=== PATIENT | female | born 1975 | race Caucasian/White ===

== ENCOUNTER 2018-06-14 21:38 | Emergency (ER) | payer OTHER ==
--- OUTSIDE RECORDS SUMMARY | 2018-06-14 21:45 | XMS REPORT | Continuity of Care Document ---
:1975 External Reference #:[id number] Author Name Katt Hernandez CNM Address [address] [place] [address] Care Team Providers Name Role Phone Katt Hernandez CNM Care Team Information Assistant Production Manager Unavailable Payers Date Identification Numbers Payment Provider Subscriber Effective: 2013 Policy Number: [id number] [facility] PayID: [id number] [address] [place] [address] Effective: 2012 Policy Number: [id number] Medicaid [place] PayID: [id number] [address] [place] [address] Expires: 2012 Policy Number: Excell[employer] SUSAN/WENDY Sher [id number] [facility] Group Number: [id number] [address] [address] PayID: [id number] MUKESH Naranjo [id number] Advance Directives Description No Information Available Problems Date Description Provider Status Onset: 12/25/2015 IUD contraception Katt Hernandez CNM Active Onset: 09/11/2015 Multigravida Katt Hernandez CNM Resolved Resolved: 10/17/2015 Family History Date Family Member(s) Observation Comments Father due to Emphysema () Mother A&W Children 3 First Son A&W Second Son A&W Third Son A&W First Brother A&W Second Brother A&W First Sister A&W Second Sister A&W Third Sister A&W Fourth Sister A&W Paternal Grandfather due to Old Age () Paternal Grandmother due to Old Age () Maternal Grandfather due to Unknown Causes () Maternal Grandmother due to Old Age () Social History Type Date Description Comments Sex Unknown Education Highest level completed, Associates Degree Marital Status Lives With Spouse Lives With Sons Pets 2 cats Pets 1 dog Pets Chickens 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 Tobacco Use Start: Unknown Never Smoked Cigarettes ETOH Use Occasionally consumed stopped with alcohol in the past Recreational Drug Use Does Not Use Drugs Tobacco Use Start: Unknown Patient has never smoked Smoking Status Reviewed: 05/20/18 Patient has never smoked Exercise Type/Frequency Exercises sporadically Seat Belt/Car Seat Always uses seat belt Currently Active Patient is currently sexually active Contraceptive Methods Current methods include copper T IUD STD's No STD History Allergies, Adverse Reactions, Alerts Description No Known Drug Allergies Medications Medication Date Status Form Strength Qnty SIG Indications Ordering Provider Paragard 12/24 Active IUD T380a placed Mahrie Intrauterine 04/05/2018 Jose Hernandez [facility] Contraceptive T380a Vitamin D-3 Active Capsules 1000Unit 2 by mouth Unknown /0000 daily Calcium 600 Active Tablets 600mg Unknown /0000 Magnesium Active Capsules 500mg Unknown /0000 Zinc Active Tablets 25mg Unknown /0000 Metronidazole 04/07 Hx Gel 0.75% 70gm one applicator intravaginally David, - every night at [facility] 04/14 bedtime x days Diclegis 03/23 Hx Tablets 10-10mg 60tab take [address] diaz by mouth at [facility], - bedtime, june [facility] 07/02 add 1 tablet in morning No Active 06/08 Hx Unknown Medications /2014 - 03/23 Norberto-Tab 12/20 Hx Tablets 250mg Gloria DR Valles, - ANP-[facility] 12/20 Erythromycin 12/[address] 250mg 56cap 1 po qid x 14 Gloria Part s Reena, - ANP-C 01/12 Doxycycline 12/[address] 100mg 28cap one tab po bid Gloria Hyclate Part s x 14 days to Jump, - start day 1 of ANP-C 12/20 mens Doxycycline 12/[address] 100mg 28cap one tab po bid Gloria Hyclate Part s x 14 days to Jump, - start day 1 of ANP-C 12/08 mens Folic Acid 05/18 Hx Tablets Mid Dwayne Adam M.D. 05/09 Ferrous 05/18 Hx Syrup 150cc 1 tsp by mouth Meera, daily Dwayne Adam M.D. 11/29 05/18 Hx Tablets 90tab 1 po qd Meera s Dwayne Adam M.D. 06/08 Vitamin D / Hx Unknown /0000 - 05/09 Iron 100 Plus Hx Unknown / - 05/09 Calcium & Hx Unknown Magnesium /0000 - 05/09 Lexapro Hx Tablets 5mg 1 PO daily Unknown / - 11/07 Medications Administered in Office Medication Date Status Form Strength Qnty SIG Indications Ordering Provider PT SCRN Tbco Administered Injection Mahriben Id as Non User 019 SUDHAKAR Hernandez PT SCRN Tbco Administered Injection Katt Id as Non User 019 SUDHAKAR Hernandez Immunizations CPT Code Status Date Vaccine Lot # [id number] Given 07/24/2015 Tetnus, Diptheria Toxoids And Acellular Pertussis, [id number] PT > 7Yrs Old 60949 Given 06/09/2013 Tetnus, Diptheria Toxoids And Acellular Pertussis, [id number] PT > 7Yrs Old 16095 Given 02/21/2013 Influenza Virus Vaccine Split Virus Use For Individual 3Yr Older Vital Signs Date Vital Result Comment 05/20/2018 9:16am BP Systolic 108 mmHg BP Diastolic 68 mmHg Height 66 inches 5'6" Weight 152.00 lb BMI (Body Mass Index) 24.5 kg/m2 6 Parity 3 04/05/2018 2:13pm BP Systolic 106 mmHg BP Diastolic 64 mmHg Height 66 inches 5'6" Weight 152.00 lb BMI (Body Mass Index) 24.5 kg/m2 Last Menstrual Period 1904438 6 Parity 3 11/07/2016 11:01am BP Systolic 122 mmHg BP Diastolic 82 mmHg Height 66 inches 5'6" Weight 151.00 lb BMI (Body Mass Index) 24.4 kg/m2 Last Menstrual Period 9371215 6 Parity 3 01/23/2016 12:11pm BP Systolic 98 mmHg BP Diastolic 58 mmHg Height 66 inches 5'6" Weight 144.00 lb BMI (Body Mass Index) 23.2 kg/m2 12/25/2015 1:26pm BP Systolic 108 mmHg BP Diastolic 64 mmHg Height 66 inches 5'6" Weight 144.00 lb BMI (Body Mass Index) 23.2 kg/m2 Last Menstrual Period 9186467 6 Parity 3 11/28/2015 1:43pm BP Systolic 118 mmHg BP Diastolic 64 mmHg Height 66 inches 5'6" Weight 144.00 lb BMI (Body Mass Index) 23.2 kg/m2 Last Menstrual Period 1403817 6 Parity 3 03/23/2015 1:09pm BP Systolic 108 mmHg BP Diastolic 64 mmHg Height 66 inches 5'6" Weight 140.00 lb BMI (Body Mass Index) 22.6 kg/m2 Last Menstrual Period 7050193 6 Parity 2 06/08/2014 1:59pm BP Systolic 122 mmHg BP Diastolic 86 mmHg Height 66 inches 5'6" Weight 137.00 lb BMI (Body Mass Index) 22.1 kg/m2 Last Menstrual Period 0544693 5 Parity 2 10/13/2013 10:56am BP Systolic 126 mmHg BP Diastolic 78 mmHg Height 66 inches 5'6" Weight 150.00 lb BMI (Body Mass Index) 24.2 kg/m2 Last Menstrual Period 3789049 4 Parity 2 01/17/2013 1:48pm BP Systolic 108 mmHg BP Diastolic 64 mmHg Height 66 inches 5'6" Weight 138.00 lb BMI (Body Mass Index) 22.3 kg/m2 Last Menstrual Period 0715414 4 Parity 1 11/29/2012 10:34am BP Systolic 122 mmHg BP Diastolic 80 mmHg Height 66 inches 5'6" Weight 135.00 lb BMI (Body Mass Index) 21.8 kg/m2 Last Menstrual Period 5805463 3 Parity 1 06/10/2012 8:19am BP Systolic 110 mmHg BP Diastolic 64 mmHg Height 66 inches 5'6" Weight 136.00 lb BMI (Body Mass Index) 21.9 kg/m2 Last Menstrual Period 3436449 2 Parity 1 05/18/2012 10:14am BP Systolic 110 mmHg BP Diastolic 64 mmHg Height 66 inches 5'6" Weight 137.00 lb BMI (Body Mass Index) 22.1 kg/m2 Last Menstrual Period 0515136 2 Parity 1 Results Test Date Facility Test Result H/L Range Note Laboratory test 04/05/2018 [facility] Cytology SEE RESULT 1 finding [place] [address] BELOW [phone] CBC With No Diff 11/07/2016 [facility] White Blood 7.9 10^3/uL N 3.5-10.8 [place] [address] Count [phone] Red Blood Count 4.49 10^6/uL N 4.0-5.4 Hemoglobin 14.0 g/dL N 12.0-16.0 Hematocrit 42 % N 35-47 Mean Corpuscular Volume 94 fL N 80-97 Mean Corpuscular Hemoglobin 31 pg N 27-31 Mean Corpuscular HGB Conc 33 g/dL N 31-36 Red Cell Distribution Width 13 % N 10.5-15 Platelet Count 276 10^3/uL N 150-450 Mean Platelet Volume 8 um3 N 7.4-10.4 Laboratory test 11/07/2016 [facility] TSH 0.76 mcIU/mL N 0.34- 5.60 2 finding [facility] [place] [address] [phone] T4 Free 0.71 ng/dL N 0.61-1.12 3 Liver Function 10/09/2015 [facility] Total Protein 5.8 g/dL Low 6.4-8.9 Panel Medicine [place] [address] [phone] Albumin 3.3 g/dL N 3.2-5.2 Globulin 2.5 g/dL N 2-4 Albumin/Globulin Ratio 1.3 N 1-3 Total Bilirubin 0.40 mg/dL N 0.2-1.0 Direct Bilirubin 0.10 mg/dL N 0.03-0.18 Indirect Bilirubin 0.3 mg/dL N 0.3-1.0 Alkaline Phosphatase 91 U/L N 34-104 Alt 14 U/L N 7-52 Ast 18 U/L N 13-39 Laboratory test 10/09/2015 [facility] Bile Acid 1 umol/L N 0- 10 4 finding [place] [address] [phone] Laboratory test 09/25/2015 [facility] Genital For SEE RESULT 5 finding [place] [address] GRP B Strep BELOW [phone] Only Laboratory test 07/24/2015 [facility] Glucose 1 HR 85 mg/dL N 70-160 6 [place] [address] Post Prandial [phone] CBC With No Diff 07/24/2015 [facility] White Blood 6.8 10^3/uL N 3.5-10.8 [place] [address] Count [phone] Red Blood Count 3.84 10^6/uL Low 4.0-5.4 Hemoglobin 12.0 g/dL N 12.0-16.0 Hematocrit 37 % N 35-47 Mean Corpuscular Volume 97 fL N 80-97 Mean Corpuscular Hemoglobin 31 pg N 27-31 Mean Corpuscular HGB Conc 32 g/dL N 31-36 Red Cell Distribution Width 12 % N 10.5-15 Platelet Count 221 10^3/uL N 150-450 Mean Platelet Volume 8 um3 N 7.4-10.4 Maternal Serum Afp 05/15/2015 [facility] ROHAN Interpretation SEE NOTE 7 Risk For NTD (Osb) LESS THAN 1:5000 8 Afp,Serum 29.5 NG/ML Adjusted Mom 0.69 9 Comment SEE NOTE 10 Date Of 1975 JUVENTINO 10/18/2015 JUVENTINO Determined By ULTRASOUND Gestational Age 17.7 WEEKS Weight 140 LBS Race =W Insulin Dependent Diabetic NO Repeat Sample NO Number Of Fetuses 1 History Of NTD NO Date Of Draw 05/15/2015 Software Engineer Kernel SEE NOTE 11 CBC With No 03/30/2015 [facility] White Blood 8.1 10^3/uL N 3.5-10.8 [place] [address] Count [phone] Red Blood Count 4.12 10^6/uL N 4.0-5.4 Hemoglobin 13.0 g/dL N 12.0-16.0 Hematocrit 39 % N 35-47 Mean Corpuscular Volume 94 fL N 80-97 Mean Corpuscular Hemoglobin 32 pg High 27-31 Mean Corpuscular HGB Conc 34 g/dL N 31-36 Red Cell Distribution Width 12 % N 10.5-15 Platelet Count 224 10^3/uL N 150-450 Mean Platelet Volume 9 um3 N 7.4-10.4 Type And Screen 03/30/2015 [facility] Patient Blood [place] [address] [phone] Antibody Screen NEGATIVE N HIV 1/2 AB 03/30/2015 [facility] HIV 1 2 Nonreactive N Nonreactive 12 [place] [address] Antibody [phone] Parvovirus 03/30/2015 [facility] Parvovirus 6.28 index Abnormal <0.90 [address] [place] [place] [address] (B19) IgG Igm [phone] Antibody Parvovirus (B19) IgM Antibody 0.09 index N <0.90 14 Parvovirus Interpretation See Comment N 15 SCR+Sex 03/30/2015 [facility] Chromosome 13 Negative N 16 Chrom Analysis Inform Aneuploidy Chromosome 18 Aneuploidy Negative N 17 Chromosome 21 Aneuploidy Negative N 18 Sex Chromosome Analysis Male N 19 PDF Report SEE IMAGE RPR 03/30/2015 [facility] Syphilis IgG [place] [address] [phone] Pediatric/Maternal YES N RPR Nonreactive N Nonreactive RPR Titer TNP N PNL No 03/30/2015 [facility] Rubella Screen Immune IU/ [place] [address] [phone] Hemoglobin A1c 5.1 % N Less than 6.0 20 Hepatitis B Surface Ag Nonreactive N Nonreactive 21 GC/Chlamydia Dna 03/23/2015 [facility] Chlamydia Negative [place] [address] trachomatis Rna [phone] Neisseria gonorrhoeae (GC) Rna Negative N Negative Laboratory test 03/23/2015 [facility] Human Negative N Negative 22 [place] [address] Papilloma [phone] Virus Rna Urine Culture And 03/23/2015 [facility] Urine Culture SEE RESULT 23 [place] [address] BELOW [phone] Laboratory test 03/23/2015 [facility] Cytology SEE RESULT 24 [place] [address] BELOW [phone] Laboratory test 07/29/2013 [facility] Group B Strep (SEE NOTE) 25 [place] [address] Culture [phone] Screen Laboratory test 06/09/2013 [facility] Glucose 1 HR 111 mg/dL N 70-160 [place] [address] Post Prandial [phone] CBC With No Diff 06/09/2013 [facility] White Blood 9.0 10^3/uL N 4.8-10.8 [place] [address] Count [phone] Red Blood Count 3.70 10^6/uL Low 4.0-5.4 Hemoglobin 11.9 g/dL Low 12.0-16.0 Hematocrit 34 % Low 35-47 Mean Corpuscular Volume 92 fL N 80-97 Mean Corpuscular Hemoglobin 32 pg High 27-31 Mean Corpuscular HGB Conc 35 g/dL N 31-36 Red Cell Distribution Width 12 % N 10.5-15 Platelet Count 235 10^3/uL N 150-450 Mean Platelet Volume 8 um3 N 7.4-10.4 Maternal Serum Afp 03/21/2013 [facility] Interpretation (SEE NOTE) 26 Risk For NTD (Osb) LESS THAN 1:5000 27 Afp,Serum 39.1 NG/ML Adjusted Mom 0.86 28 Comment (SEE NOTE) 29 Date Of 1975 JUVENTINO 08/25/2013 JUVENTINO Determined By ULTRASOUND Gestational Age 17.6 WEEKS Weight 138 LBS Race =W Insulin Dependent Diabetic NO Repeat Sample NO Number Of Fetuses 1 History Of NTD NO Date Of Draw 03/21/2013 Software Engineer Kernel (SEE NOTE) 30 PNL No 02/21/2013 [facility] Rubella Screen [place] [address] [phone] Hemoglobin A1c 4.9 % Less than 6.0 31 Hepatitis B Surface Antigen Nonreactive Nonreactive 32 RPR 02/21/2013 [facility] Syphilis IgG [place] [address] [phone] RPR Nonreactive Nonreactive RPR Titer TNP Pediatric/Maternal YES CBC With No 02/21/2013 [facility] White Blood 5.4 10^3/uL 4.8 -10.8 [place] [address] Count [phone] Red Blood Count 3.96 10^6/uL Low 4.0-5.4 Hemoglobin 12.7 g/dL 12.0-16.0 Hematocrit 37 % 35-47 Mean Corpuscular Volume 93 fL 80-97 Mean Corpuscular Hemoglobin 32 pg High 27-31 Mean Corpuscular HGB Conc 35 g/dL 31-36 Red Cell Distribution Width 12 % 10.5-15 Platelet Count 203 10^3/uL 150-450 Mean Platelet Volume 9 um3 7.4-10.4 Type And Screen 02/21/2013 [facility] Patient [place] [address] [phone] Antibody Screen NEGATIVE HIV 1/2 AB 02/21/2013 [facility] HIV 1 2 Antibody Nonreactive Nonreactive 33 [place] [address] [phone] Laboratory 02/21/2013 [facility] TSH (Thyroid 1.03 miu/mL 0.34-5.60 [place] [address] Stimulating [phone] Horm) Sequential 02/21/2013 [facility] Interpretation SEE BELOW 34 Integrated SCRN 1 [place] Age Risk Down Syndrome 1:130 ROHAN Down Syndrome Risk <1:5000 <1:50 ROHAN Trisomy 18 Risk 1:39 <1:100 Calculated Gestational Age 13.3 35 Sigifredo-A 482 NG/ML Sigifredo-A Mom 0.35 HCG,Serum 16.5 IU/mL HCG Mom 0.31 NT Mom 1.23 36 Referring Physician Name NASRA PARSONS Referring Physician Phone [phone] Referring Physician Npi [id number] Date Of 1975 Collection Date 02/21/2013 Maternal Weight 138 LBS Est'd Date Of Delivery 08/25/2013 JUVENTINO Determined By Mother's Ethnic Origin Number Of Fetuses 1 Insulin Depend Diabetic NO Repeat Specimen NO HX Of Neural Tube Defects NO Brief History (NTD) NO Prev Down Synd NO Donor Egg NO Donor Age:Egg Retrieval NO Ultrasound Date 02/21/2013 Pumper Hand's Name GILLES NTQR Pumper Hand Id# [id number] NTQR Location Id# [id number] NTQR Reading Phys Id# [id number] F Pumper Hand Id# NOT GIVEN [place] Rump Length 74 MM Nuchal Translucency 2.0 MM Nasal Bone NOT GIVEN If Twins NOT GIVEN Twin B CRL NOT GIVEN MM Twin B NT NOT GIVEN MM Twin B Nasal Bone NOT GIVEN Culture,Urine,Voided 01/17/2013 [facility] Source URINE-CLEAN VOID <SEE NOTE> 37 Final Report (SEE NOTE) 38 Laboratory test finding 12/24/2012 [facility] Progesterone 16.5 NG/ML 39 HCG,Total,QN 2671.1 MIU/ML Abnormal 40 GC/Chlamydia 11/29/2012 [facility] GC/Chlamydia (SEE neg 41 [place] [address] Rna NOTE) [phone] Laboratory 11/29/2012 [facility] Mycoplasma see Abnormal + 42 test finding Hominis/Ureapl note ureaplasma asma Culture Lupus Anticoag 11/29/2012 [facility] Antithrombin 121 High 80-120 43 W/RFX,Atiii,Pr III Activity %activi otein C&S ty Lupus Anticoagulant see note 44 PTT-LA Screen 35 sec <=40 DRVVT Mix Interpretation Not Indicated DRVVT Screen 31 sec <=45 Protein C,Activity 162 % 70-180 45 Protein S,Activity 91 % 60-140 Cardiolipin AB Igg,Iga,Igm 11/29/2012 [facility] Cardiolipin AB (Iga) <11 APL <=11 46 Cardiolipin AB (Igg) <14 GPL <=14 47 Cardiolipin AB (Igm) <12 MPL <=12 48 Prothrombin Gene,MTHFR 11/29/2012 [facility] Prothrombin Gene Analysis see note 49 Dna,Factor V Interpretation see note 50 Reviewer see note 51 MTHFR,Dna Mutation see note Abnormal 52 Interpretation see note 53 Reviewer see note 54 Factor V (Leiden) Mutation see note 55 Interpretation see note 56 Reviewer see note 57 Laboratory 05/20/2012 [facility] Beta HCG 152.0 High 0.0-5.0 58 [place] [address] Quantitative MIU/ML [phone] Laboratory 05/18/2012 [facility] Beta HCG 442.0 High 0.0-5.0 59 [place] [address] Quantitative MIU/ML [phone] Hepatitis 06/13/2003 [facility] Hepatitis A AB NEGATIVE [place] [address] Igm [phone] Hepatitis B Surface Ag NEGATIVE Negative Hepatitis B Core Igm NEGATIVE Negative Hepatitis C Antibody NEGATIVE Negative Laboratory test 03/16/2002 [facility] TSH 0.67 MIU/ML 0.34- 5.60 [place] [address] [phone] Free Thyroxine 0.69 ng/dL 0.58-1.64 GC/Chlamydia Dna 07/29/2001 [facility] Chlamydia By NEGATIVE Negative 60 [place] [address] Dna Probe [phone] GC By Dna Probe NEGATIVE Negative 61 1 SEE RESULT BELOW Name: KRYS RAMOS : [address]: Katt LUCIO Acct: [id number] Unit: [id number] AGE: 42 Location: [facility] Re04/05/18 SEX: F Status: REG REF SPEC: [id number] ELEN: 04/05/18-[address]: Katt LUCIO REQ: [id number] RECD: 04/06/18-1311 STATUS: SOUT _ ORDERED: TP IMAGE ANALYS, HPV/Thin Prep COMMENTS: [id number] Negative for Intraepithelial lesion or Malignancy Shift in jose suggestive of bacterial vaginosis Date Time Test Result Flag (u) Normal Range 04/05/18 0830 @ HPV RNA Negative Negative @ @ The high-risk HPV types detected by the assay include: 16, @ 18, 31, 33, 35, 39, 45, 51, 52, 56, 58, 59, 66, and 68. A. Ectocervical/Endocervical Specimen Adequacy: Satisfactory of evaluation Transformation zone component identified Patient Information: HPV: High risk HPV RNA testing regardless of pap results. Actual Specimen Date: 04/05/18 Last Menstrual Date: 03/08/18 Date of Last Specimen: 03/23/15 ?: N Post Menopausal?: N Hysterectomy?: N Previous Abnormal Pap Smears?:N Signed by and Reported on: JAROD Eli(ASCP) [id number] This Pap test was evaluated with the assistance of the SimplifyPrep Test Imaging System. Due to cytologic findings at the clay mine cutting machine operator microscope, comprehensive manual rescreening by a Petroleum Geologist may be required. The Pap Smear is a screening test designed to aid in the detection of premalignant and malignant conditions of the uterine cervix. It is not a diagnostic procedure and should not be used as the sole means of detecting cervical cancer. Both false- positive and false- negative reports do occur. Depending on your risk status, a Pap smear should be obtained and evaluated every 1-3 years. END OF REPORT DEPARTMENT OF PATHOLOGY, [address] [place] [address] Brian Deras M.D. Director [facility] # [id number] 2 [id number] INTERPRETIVE INFORMATION: Bile Acids, Total Reference Interval applies to fasting specimens. Test Performed by: [facility] [employer] [facility] [address] [place] [id number] 5 SEE RESULT BELOW Name: KRYS RAMOS : [address]: Katt Hernandez [facility] Acct: [id number] Unit: [id number] AGE: 40 Location: [facility] Re09/25/15 SEX: F Status: REG REF SPEC: [id number] ELEN: 09/25/15-[address]: Katt Hernandez [facility] REQ: [id number] RECD: 09/25/15 STATUS: COMP _ SOURCE: CER/VAG/RE SPDESC: ORDERED: Grp B Strp Scrn COMMENTS[place] [facility] [id number] QUERIES: Is Patient Penicillin Allergic? N Is patient penicillin allergic and/or sensitivities needed? N Provider Requisition # [id number] Procedure Result Reported Site Group B Strep Culture Screen Final 09/27/15- 1438 ML Group B Strep Screen Negative * ML - MAIN LAB ([facility]) . END OF REPORT * ML=Testing performed at Main Lab DEPARTMENT OF PATHOLOGY, [address] [place] [address] Brian Deras M.D. Director [facility] # [id number] 6 [id number] SCREEN NEGATIVE FOR OPEN NTD. 8 LESS THAN 1:5000 9 ADJUSTED AFP MOM INTERPRETIVE CUTOFFS: <2.50 ADJUSTED MOM <1.90 ADJUSTED MOM FOR INSULIN-DEPENDENT DIABETES <4.00 ADJUSTED MOM FOR TWINS <3.50 ADJUSTED MOM FOR TWINS INSULIN-DEPENDENT DIABETES <4.50 ADJUSTED MOM FOR TRIPLETS <4.00 ADJUSTED MOM FOR TRIPLETS INSULIN-DEPENDENT DIABETES 10 THE AFP TEST RESULT INDICATES THAT THIS PATIENT IS SCREEN NEGATIVE FOR OPEN NTD. IT SHOULD BE NOTED THAT NORMAL TEST RESULTS CAN NEVER GUARANTEE THE OF A NORMAL BABY AND THAT 2-3% OF [place] HAVE SOME TYPE OF PHYSICAL OR MENTAL DEFECT, MANY OF WHICH ARE UNDETECTABLE THROUGH ANY KNOWN DIAGNOSTIC TECHNIQUE. THE SINGLE AFP MARKER IS NOT RECOMMENDED FOR DOWN SYNDROME AND OTHER CHROMOSOMAL ABNORMALITIES SCREENING. MUCH GREATER SENSITIVITY IS ACHIEVED WITH MULTIPLE MARKERS, SUCH AFP, HCG, UNCONJUGATED ESTRIOL, AND/OR DIMERIC INHIBIN A. WHILE WOMEN 35 YEARS OR OLDER AT THE TIME OF DELIVERY HAVE THE HIGHEST RISK OF HAVING A CHILD WITH DOWN SYNDROME, CURRENT [place] [employer] AND GYNEC[employer] GUIDELINES (RECREATIONAL VEHICLE REPAIRER 2007 [id number] RECOMMEND THAT "MATERNAL AGE ALONE NO LONGER BE USED A CUT-OFF TO DETERMINE WHO IS OFFERED SCREENING VERSUS WHO IS OFFERED INVASIVE TESTING." GENETIC COUNCELING MAY BE CONSIDERED. THIS IS A SCREENING TEST, NOT A DIAGNOSTIC TEST. THIS RISK ASSESSMENT REPORT IS BASED IN PART ON DEMOGRAPHIC DATA PROVIDED BY THE ORDERING PHYSICIAN. PLEASE NOTIFY THE LAB PROMPTLY IF ANY DATA IS INCORRECT. FOR ASSISTANCE WITH RECALCULATIONS, PLEASE CALL YOUR LOCAL [facility] AT . FOR ASSISTANCE WITH INTERPRETATION OF THESE RESULTS, PLEASE CALL [phone]. 11 REVIEWED BY Jasmine RYAN M.D. 12 It is recognized that currently available assays for the detection of antibodies to HIV-1 and/or HIV-2 may not detect all infected individuals. HIV antibodies may be undetectable in some stages of the infection and in some clinical conditions. The performance of this assay has not been established for populations of infants or children. Assayed by Chemiluminescence Microparticle Immunoassay on the Siemens Advia Centaur CP. Values obtained with different methods or kits cannot be used interchangeably.The diagnostic specificity of the ADVIA Centaur 1/O/2 Enhanced assay in the low risk population was 99.90% (6052/6058) with a 95% confidence interval of 99.78 to 99.96%. 13 Positive 14 Negative 15 RESULT: Results suggest past infection. Test Performed by: [place] [address] Software Engineer Kernel: Sharad Fink II, M.D., Ph.D. 16 No aneuploidy detected. 17 No aneuploidy detected. 18 No aneuploidy detected. 19 Male: No aneuploidy detected. 20 Therapeutic target for the treatment of diabetes Mellitus patients is <7% HBA1C, and in selective patients <6.0%.Please refer to [place] [employer] Diabetic care guidelines for further information. 21 , Pediatric (<=12yrs) or Maternal?: YES 22 The high-risk HPV types detected by the assay include: 16, 18, 31, 33, 35, 39, 45, 51, 52, 56, 58, 59, 66, and 68. 23 SEE RESULT BELOW Name: KRYS RAMOS : [address]: Anna LUCIO Acct: [id number] Unit: [id number] AGE: 39 Location: [facility] Re03/23/15 SEX: F Status: REG REF SPEC: [id number] ELEN: 03/23/15-1340 [facility] DR: Anna Rouse [facility] REQ: [id number] RECD: 03/23/15 STATUS: COMP _ SOURCE: URINE SPDESC: ORDERED: Urine Culture Procedure Result Reported Site Urine Culture Final 03/25/15- 0846 ML No Growth (<1,000 CFU/mL) * ML - MAIN LAB ([facility]) . END OF REPORT * ML=Testing performed at Main Lab DEPARTMENT OF PATHOLOGY, [address] [place] [address] Brian Deras M.D. Director [facility] # [id number] 24 SEE RESULT BELOW Name: KRYS RAMOS : [address]: Anna Rouse CNM Acct: [id number] Unit: [id number] AGE: 39 Location: [facility] Re03/23/15 SEX: F Status: REG REF SPEC: [id number] ELEN: 03/23/15-[address]: Anna Rouse CNM REQ: [id number] RECD: 03/23/15 STATUS: SOUT _ ORDERED: IMAGE ANALYSIS, HPV/Thin Prep FINAL DIAGNOSIS Negative for Intraepithelial lesion or Malignancy A. Ectocervical/Endocervical Specimen Adequacy: Satisfactory of evaluation Transformation zone component identified Patient Information: HPV: High risk HPV RNA testing regardless of pap results. Actual Specimen Date: 03/23/15 Last Menstrual Date: 01/11/15 Spec Date if unknown: unknown ?: Y Date Time Test Result Flag (u) Normal Range 03/23/15 1415 HPV RNA Negative Negative The high-risk HPV types detected by the assay include: 16, 18, 31, 33, 35, 39, 45, 51, 52, 56, 58, 59, 66, and 68. Signed (signature on file) JAROD Eli([facility]) 03/26 1528 This Pap test was evaluated with the assistance of the ClickScanSharep Test Imaging System. Due to cytologic findings at the clay mine cutting machine operator microscope, comprehensive manual rescreening by a Petroleum Geologist may be required. The Pap Smear is a screening test designed to aid in the detection of premalignant and malignant conditions of the uterine cervix. It is not a diagnostic procedure and should not be used as the sole means of detecting cervical cancer. Both false- positive and false- negative reports do occur. Depending on your risk status, a Pap smear should be obtained and evaluated every 1-3 years. END OF REPORT * ML=Testing performed at Main Lab DEPARTMENT OF PATHOLOGY, [facility] [employer] [place], [place] [address] Brian Deras M.D. Director [facility] # [id number] 25 RUN DATE: 08/03/13 [facility] LAB LIVE PAGE 1 RUN TIME: [address] [facility] [employer] [place], [place] [address] Specimen Inquiry Name: KRYS RAMOS : [address]: Toña Gage CNM Acct: [id number] Unit: [id number] AGE: 38 Location: [facility] Re07/29/13 SEX: F Status: REG REF SPEC: [id number] ELEN: 07/29/13-[address]: Toña Gage CNM REQ: [id number] RECD: 08/01/13-1628 STATUS: COMP _ SOURCE: CER/VAG/RE SPDESC: ORDERED: Grp B Strp Scrn QUERIES: Is Patient Penicillin Allergic? N Medent Number [id number] Procedure Result Verified Site Group B Strep Culture Screen Final 08/03/13- 0850 ML Group B Strep Screen Negative END OF REPORT * ML=Testing performed at Main Lab DEPARTMENT OF PATHOLOGY, [address] [place] [address] Brian Deras M.D. Director [facility] # [id number] 26 SCREEN NEGATIVE FOR OPEN NTD. 27 LESS THAN 1:5000 28 ADJUSTED AFP MOM INTERPRETIVE CUTOFFS: <2.50 ADJUSTED MOM <1.90 ADJUSTED MOM FOR INSULIN-DEPENDENT DIABETES <4.00 ADJUSTED MOM FOR TWINS <3.50 ADJUSTED MOM FOR TWINS INSULIN-DEPENDENT DIABETES <4.50 ADJUSTED MOM FOR TRIPLETS <4.00 ADJUSTED MOM FOR TRIPLETS INSULIN-DEPENDENT DIABETES 29 THE AFP TEST RESULT INDICATES THAT THIS PATIENT IS SCREEN NEGATIVE FOR OPEN NTD. IT SHOULD BE NOTED THAT NORMAL TEST RESULTS CAN NEVER GUARANTEE THE OF A NORMAL BABY AND THAT 2-3% OF [place] HAVE SOME TYPE OF PHYSICAL OR MENTAL DEFECT, MANY OF WHICH ARE UNDETECTABLE THROUGH ANY KNOWN DIAGNOSTIC TECHNIQUE. THE SINGLE AFP MARKER IS NOT RECOMMENDED FOR DOWN SYNDROME AND OTHER CHROMOSOMAL ABNORMALITIES SCREENING. MUCH GREATER SENSITIVITY IS ACHIEVED WITH MULTIPLE MARKERS, SUCH AFP, HCG, UNCONJUGATED ESTRIOL, AND/OR DIMERIC INHIBIN A. 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 THIS IS A SCREENING TEST, NOT A DIAGNOSTIC TEST. THIS RISK ASSESSMENT REPORT IS BASED IN PART ON DEMOGRAPHIC DATA PROVIDED BY THE ORDERING PHYSICIAN. PLEASE NOTIFY THE LAB PROMPTLY IF ANY DATA IS INCORRECT. FOR ASSISTANCE WITH RECALCULATIONS, PLEASE CALL YOUR LOCAL [facility] AT . FOR ASSISTANCE WITH INTERPRETATION OF THESE RESULTS, PLEASE CALL [phone]. 30 REVIEWED BY Jasmine RYAN M.D. 31 Therapeutic target for the treatment of diabetes Mellitus patients is <7% HBA1C, and in selective patients <6.0%.Please refer to [place] [employer] Diabetic care guidelines for further information. 32 YES 33 It is recognized that currently available assays for the detection of antibodies to HIV-1 and/or HIV-2 may not detect all infected individuals. HIV antibodies may be undetectable in some stages of the infection and in some clinical conditions. The performance of this assay has not been established for populations of infants or children. Assayed by Chemiluminescence Microparticle Immunoassay on the Siemens Advia Centaur CP. Values obtained with different methods or kits cannot be used interchangeably.The diagnostic specificity of the ADVIA Centaur 1/O/2 Enhanced assay in the low risk population was 99.90% (6052/6058) with a 95% confidence interval of 99.78 to 99.96%. 34 HIGH RISK FOR TRISOMY 18. NT WAS USED IN THE RISK CALCULATIONS. 35 [place] rump length (CRL) was used to calculate gestational age. JUVENTINO, if provided, was not used for gestational age dating. 36 The Sequential Integrated Screen Part 1 combines SIGIFREDO-A and hCG with or without a nuchal translucency measurement in the first trimester. These test results indicate a risk for Trisomy 18 that equals or exceeds 1 in 100 and are considered high risk. Genetic counseling and possible CVS are recommended. Ultrasound confirmation of gestational age is also recommended if it has not already been done. Interpretation reviewed by: Naun Tang, Ph.D., [facility] This is a screening test, not a diagnostic test. This risk assessment is based on demographic data provided by the ordering physician. Please notify the laboratory promptly if any data are incorrect. If you have questions concerning this report: For clinical consultation, call ; For technical questions, call ext [phone]; For recalculations, fax to . This test was developed and its performance characteristics have been determined by [facility] [employer] [facility] [[email or web address] Performance characteristics refer to the analytical performance of the test. 37 URINE-CLEAN VOIDED 38 NO GROWTH 39 REFERENCE RANGE: (ADULT) NG/ML FEMALE: FOLLICULAR PHASE <1.0 LUTEAL PHASE 2.6 - 21.5 POST-MENOPAUSAL <0.5 FIRST TRIMESTER 4.1 - 34.0 SECOND TRIMESTER 24.0 - 76.0 THIRD TRIMESTER 52.0 - 302.0 MALE: <1.4 40 HCG REFERENCE VALUES MALES: <5 mIU/mL FEMALES: NON: <5 mIU/mL VALUES < 10 mIU/mL ARE CONSIDERED NORMAL FOR POSTMENOPAUSAL FEMALES. (HCG) INTERPRETATION: NEGATIVE <5 mIU/mL 0.2-1 WEEK 5-50 1-2 50-500 2-3 100-5000 3-4 500-10,000 4-5 1,000-50,000 5-6 10,000-100,000 6-8 15,000-200,000 2-3 MONTHS 10,000-100,000 THE TABLE ABOVE PROVIDES ONLY A VERY ROUGH ESTIMATE OF GESTATIONAL AGE AND SHOULD BE USED ONLY IN CONJUNCTION WITH OTHER METHODS FOR ESTABLISHING GESTATIONAL AGE. MUCH MORE RELIABLE AND ACCURATE ESTIMATIONS OF GESTATIONAL AGE MAY BE OBTAINED BY USING LMP OR ULTRASOUND. VALUES BETWEEN 5 AND 25 MIU/ML IN WOMEN SHOULD BE CONFIRMED BY REPEAT ANALYSIS IN 2 TO 4 DAYS IF CLINICALLY INDICATED. VALUES FROM DIFFERENT ASSAY METHODS MAY VARY. THE USE OF THIS ASSAY TO MONITOR OR TO DIAGNOSE PATIENTS WITH CANCER OR ANY CONDITION OTHER THAN HAS NOT BEEN APPROVED BY THE FDA OR THE CANDY DIPPER HAND OF THE ASSAY. 41 RUN DATE: 11/30/12 [facility] LAB LIVE PAGE 1 RUN TIME: [address] [place] [address] Specimen Inquiry Name: KRYS LAWRENCE : [address]: Gloria Valles CNP Acct: [id number] Unit: [id number] AGE: 37 Location: [facility] Re11/29/12 SEX: F Status: REG REF SPEC: [id number] ELEN: 11/29/[address]: Gloria Valles CNP REQ: [id number] RECD: 11/29/12 STATUS: COMP _ SOURCE: ENDOCERVIX SPDESC: ORDERED: YENI/Danielle RNA QUERIES: Medent Number [id number] Procedure Result Verified Site Chlamydia Trachomatis RNA Final 11/30/12- 1325 ML NEGATIVE for Chlamydia trachomatis rRNA GC (N. gonorrhoeae) RNA Final 11/30/12- 1330 ML NEGATIVE for Neisseria gonorrhoeae rRNA A negative result does not preclude the presence of a C. trachomatis or N. gonorrhoeae infection because results are dependent on adequate specimen collection, absence of inhibitors, and sufficient rRNA to be detected. Test results may be affected by improper specimen collection, improper storage, technical error, or specimen mixup. Limitations of the Procedure: The Aptima Combo 2 Assay is not intended for the evaluation of suspected sexual abuse or for other medico-legal indications. For those patients for whom a false positive result may have adverse psychosocial impact, the [facility] recommends retesting by a method using an alternate technology. Therapeutic failure or success cannot be determined with the Aptima Combo 2 Assay since nucleic acid may persist following appropriate antimicrobial therapy. Results from the Aptima Combo 2 Assay should be interpreted in conjunction with other laboratory and clinical data available to the clinican. CONTINUED ON NEXT PAGE * ML=Testing performed at Main Lab DEPARTMENT OF PATHOLOGY, [facility] [employer] [place], [place] [address] Brian Deras M.D. Director [facility] Permit #[id number] RUN DATE: 11/30/12 [facility] LAB LIVE PAGE 2 RUN TIME: [address] [facility] [employer] [place], [place] [address] Specimen Inquiry Patient: LAWRENCEKRYS [id number] (Continued) Specimen: [id number] Collected: 11/29/12 Received: 11/29/12 (Continued) Procedure Result Verified Site GC (N. gonorrhoeae) RNA Final (continued) 11/30/12- 6803 Performance characteristics for detecting C. trachomatis and N. gonorrhoeae are derived from high prevalence populations. Positive results in low prevalence populations should be interpreted carefully with the understanding that the likelihood of a false positive may be higher than a true positive. END OF REPORT * ML=Testing performed at Main Lab DEPARTMENT OF PATHOLOGY, [address] [place] [address] Brian Deras M.D. Director [facility] Permit #[id number] 42 UREAPLASMA CULT (MYCOPLASMA T) RESULT/COMMENT: * Ureaplasma urealyticum detected MYCOPLASMA HOMINIS CULT. RESULT/COMMENT: Negative for Mycoplasma hominis 43 An elevated ATIII is not clinically significant. Only deficiencies are associated with an increased thrombotic risk. 44 A Lupus Anticoagulant is not detected. Reference Range: Not Detected http://Vdolg.SeoPult/faq/LupusAnticoag This interpretation is based on the following test results. 45 Units: % of normal 46 Value Interpretation ----- < or=11 Negative 12 - 20 Indeterminate 21 - 80 Low to Medium Positive > 80 High Positive The antiphospholipid antibody syndrome (APS) is a clinical-pathologic correlation that includes a clinical event (e.g. thrombosis, loss, thrombocytopenia) and presistent positive antiphospholipid antibodies (IgM or IgG JOAN >40 MPL/GPL, IgM or IgG anti-b2GPI antibodies or a lupus anticoagulant). The IgA isotype has been implicated in smaller studies, but have not yet been incorporated into the APS criteria. International consensus guidelines suggest waiting at least 12 weeks before retesting to confirm antibody persistence. Reference J Thromb Haemost 2006: 4; 295 47 Value Interpretation ----- < or=14 Negative 15 - 20 Indeterminate 21 - 80 Low to Medium Positive > 80 High Positive The antiphospholipid antibody syndrome (APS) is a clinical-pathologic correlation that includes a clinical event (e.g. thrombosis, loss, thrombocytopenia) and persistent positive antiphospholipid antibodies (IgM or IgG JOAN >40 MPL/GPL IgM or IgG anti-b2GPI antibodies or a lupus anticoagulant). The IgA isotype has been implicated in smaller studies, but have not yet been incorporated into the APS criteria. International consensus guidelines suggest waiting at least 12 weeks before retesting to confirm antibody persistence. Reference J Thromb Haemost 2006: 4; 295 48 Value Interpretation ----- < or=12 Negative 13 - 20 Indeterminate 21 - 80 Low to Medium Positive > 80 High Positive The antiphospholipid antibody syndrome (APS) is a clinical-pathologic correlation that includes a clinical event (e.g. thrombosis, loss, thrombocytopenia) and persistent positive antiphospholipid antibodies (IgM or IgG JOAN >40 MPL/GPL, IgM or IgG anti-b2GPI antibodies or a lupus anticoagulant). The IgA isotype has been implicated in smaller studies, but have not yet been incorporated into the APS criteria. International consensus guidelines suggest waiting at least 12 weeks before retesting to confirm antibody persistence. Reference J Thromb Haemost 2006: 4; 295 49 THE D11081O MUTATION NOT DETECTED 50 This individual is negative (normal) for the K60741N mutation in the Prothrombin/Factor II gene. Increased risk of thrombophilia can be caused by a variety of genetic and non-genetic factors not screened for by this assay. 51 Cristela Hillman, Ph.D., [facility] Director, Molecular Genetics SUPPLEMENTAL INFORMATION The L92345T mutation [WB136305.1:g.19233J>A (c.*97G>A)] in the Prothrombin/Factor II gene is the second most common inherited risk factor for thrombosis occurring in approximately 2% of Caucasians. Presence of the mutation is associated with an elevation of prothrombin levels to about 30% above normal in heterozygotes and to 70% above normal in homozygotes. The V52321C mutation is detected by amplification of the selected region of Factor II gene by polymerase chain reaction (PCR) and fluorescent probe hybridization to the targeted region, followed by melting curve analysis with a real time PCR system. Although rare, false positive or false negative results may occur. All results should be interpreted in context of clinical findings, relevant history, and other laboratory data. Health care providers, please contact your local [employer] genetic counselor or call demandmart ([phone]) for assistance with interpretation of these results. This test was developed and its performance characteristics have been determined by [employer] [facility], [place], [place]. It has not been cleared or approved by the U.S. Food and Drug Administration. The FDA has determined that such clearance or approval is not necessary. Performance characteristics refer to the analytical performance of the test. 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 This genotype occurs in 1.5-15% of the population and is associated with increased plasma homocysteine levels, a risk factor for arteriosclerotic coronary artery disease and venous thrombosis. In addition, other family members may have this mutation. Consider genetic counseling and DNA testing for at-risk family members. 54 Serene Evans, Ph.D., [facility] Director, Molecular Genetics Hyperhomocysteinemia is a risk factor for arterial disease and venous thrombosis. Homocysteine levels are affected by nutritional and genetic factors. Since MTHFR is involved in methylation of homocysteine to methionine, individuals with MTHFR gene mutations that reduce enzyme activity may develop hyperhomocysteinemia and thus be at elevated risk for vascular disease. The C677T [NM_005957.3:c.665C>T (p.A222V)] and J6921M [c.1286A>C (p.E429A)] mutations are detected by amplification of the selected regions of the MTHFR gene by polymerase chain reaction (PCR) and fluorescent probe hybridization to the targeted region, followed by melting curve analysis with a real time PCR system. Although rare, false positive or false negative results may occur. All results should be interpreted in context of clinical findings, relevant history, and other laboratory data. Health care providers, please contact your local [employer] genetic counselor or call demandmart ([phone]) for assistance with interpretation of these results. This test was developed and its performance characteristics have been determined by [facility], [place], [place]. It has not been cleared or approved by the U.S. Food and Drug Administration. The FDA has determined that such clearance or approval is not necessary. Performance characteristics refer to the analytical performance of the test. 55 FACTOR V LEIDEN (R506Q) MUTATION NOT DETECTED 56 This individual is negative (normal) for the Factor V Leiden (R506Q) mutation in the Factor V gene. Increased risk of thrombophilia can be caused by a variety of genetic and non-genetic factors not screened for by this assay. 57 Gisselle Waters, Ph.D.,[facility], Director, Molecular Genetics SUPPLEMENTAL INFORMATION The Factor V Leiden (R506Q) mutation [NM_000130.2:c. 1601G>A (p.R534Q)] in the Factor V gene is one of the most common causes of inherited thrombophilia. This mutation causes resistance to degradation of activated Factor V protein by activated Protein C (APC). The Factor V Leiden (R506Q) mutation is detected by amplification of the selected region of Factor V gene by polymerase chain reaction (PCR) and fluorescent probe hybridization to the targeted region, followed by melting curve analysis with a real time PCR system. Although rare, false positive or false negative results may occur. All results should be interpreted in context of clinical findings, relevant history, and other laboratory data. Health care providers, please contact your local [employer] genetic counselor or call demandmart ([phone]) for assistance with interpretation of these results. This test was developed and its performance characteristics have been determined by [employer] [place], [place]. It has not been cleared or approved by the U.S. Food and Drug Administration. The FDA has determined that such clearance or approval is not necessary. Performance characteristics refer to the analytical performance of the test. 58 Males: < 5.0 miu/ml Non females < 5.0 miu/ml Approx gestational age approx HCG range 0-1 week < 5.0-50 1-2 weeks 50-500 2-3 weeks 100-5000 3-4 weeks 500-10,000 1-2 months 10,000-200,000 2-3 months 15,000-100,000 Please note: The intended use of this assay is the quantitative determination of HCG in human serum or plasma for the early detection of . These assays should not be used to diagnose any condition unrelated to . If an HCG level is inconsistent with, or unsupported by, clinical evidence, results should be confirmed by an alternate HCG method. 59 Males: < 5.0 miu/ml Non females < 5.0 miu/ml Approx gestational age approx HCG range 0-1 week < 5.0-50 1-2 weeks 50-500 2-3 weeks 100-5000 3-4 weeks 500-10,000 1-2 months 10,000-200,000 2-3 months 15,000-100,000 Please note: The intended use of this assay is the quantitative determination of HCG in human serum or plasma for the early detection of . These assays should not be used to diagnose any condition unrelated to . If an HCG level is inconsistent with, or unsupported by, clinical evidence, results should be confirmed by an alternate HCG method. 60 * POSITIVE RESULT IN A POPULATION WITH LOW PREVALENCE OF DISEASE SHOULD BE INTERPRETED PRESUMPTIVE; INTERPRET RESULTS IN LIGHT OF HISTORY PHYSICAL FINDINGS . 61 * POSITIVE RESULT IN A POPULATION WITH LOW PREVALENCE OF DISEASE SHOULD BE INTERPRETED PRESUMPTIVE; INTERPRET RESULTS IN LIGHT OF HISTORY PHYSICAL FINDINGS. . Procedures Date Code Description Status 04/26/2018 [id number] Mammogram Completed 04/05/2018 47230 Insert Intrauterine Device Completed 12/25/2015 69023 Insert Intrauterine Device Completed 10/17/2015 42310 Obstetric Care Routine Completed 10/09/2015 55464 Non-Stress Test Completed 08/14/2015 39491 Echography Uterus Follow-Up Or Repeat Completed 07/24/2015 67696 Injection Intramuscular Or Subcutaneous Completed 05/29/2015 92083 Echography Uterus Complete Completed 03/23/2015 36820 OB Ultrasound First Trimester Completed 09/03/2013 49237 Obstetric Care Routine Completed 08/31/2013 99275 Echography Uterus Limited Completed 08/31/2013 85964 Non-Stress Test Completed 08/30/2013 16846 Non-Stress Test Completed 04/14/2013 35374 Echography Uterus Complete Completed 02/21/2013 81654 Nuchal Translucency Ultrasound /First Completed Gestation 01/17/2013 46128 OB Ultrasound First Trimester Completed Encounters Type Date Location Provider Dx Diagnosis Office Visit 05/20/2018 [facility] Katt Hernandez CNM Z30.431 Encounter for routine 9:20a checking of intrauterine contracep dev Office Visit 04/05/2018 [facility] Katt Hernandez CNM Z30.430 Encounter for 2:20p insertion of intrauterine contraceptive device Z30.431 Encounter for routine checking of intrauterine contracep dev Z12.4 Encounter for screening for malignant neoplasm of cervix Office Visit 11/07/2016 11:00a [facility] Office Katt Hernandez R53.83 Other fatigue CNM Office Visit 01/23/2016 12:00p [facility] Katt Hernandez Z30.431 Encounter for [facility] routine checking of intrauterine contracep dev Office Visit 06/08/2014 2:20p [facility] Gloria Valles, 626.0 Menstruation Absence ANP-C Office Visit 08/30/2013 3:14p Delivery Katt Hernandez, 644.10 Labor Threatened CN Other Episode Of Care Unspec Or N/A 655.70 Movements Decreased Episode Of Care Unspec Or N/A Office Visit 11/29/2012 10:40a [facility] Gloria Valles, 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 Episode Of Care Unspec Or N/A Office Visit 06/10/2012 8:40a [facility] Cristiana 632 Missed KHADIJAH Luke Office Visit 05/18/2012 10:00a [facility] Lori Casanova, 632 Missed 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
[2018-06-14 21:57] VITALS: BP 143/98
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
== END 2018-06-14 22:46 | disposition home or self-care (01) ==
LOC: UCEAST 21:38
DX: S01.01XA Laceration without foreign body of scalp, initial encounter (principal); S40.212A Abrasion of left shoulder, initial encounter; Y04.8XXA Assault by other bodily force, initial encounter; Y92.009 Unspecified place in unspecified non-institutional (private) residence as the place of occurrence of the external cause; Y07.01 Husband, perpetrator of maltreatment and neglect; Z72.0 Tobacco use
CPT/HCPCS: 12001; 99211; G0463

== ENCOUNTER 2018-06-25 09:31 | Emergency (ER) | payer OTHER ==
[2018-06-25 09:43] VITALS: BP 108/76
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
== END 2018-06-25 10:00 | disposition home or self-care (01) ==
LOC: UCEAST 09:31
DX: S01.01XD Laceration without foreign body of scalp, subsequent encounter (principal); X58.XXXD Exposure to other specified factors, subsequent encounter; Z72.0 Tobacco use